=== PATIENT | male | born 2000 | race Hispanic/Latino ===

== ENCOUNTER 2022-07-23 15:48 | Emergency (ER) | payer MEDICAID, SELFPAY ==
[2022-07-23 15:49] VITALS: BP 113/83; PULSE 115; RESP 18; TEMP 36.6; O2SAT 100; BMI 24.8
--- NOTE | 2022-07-23 15:54 | EDS_ITS ---
HPI History of Present Illness Chief Complaint: Lower Extremity Injury Narrative Narrative: 21-year-old male here for right knee pain after running from the police. Patient further states he injured his right knee, twisted the knee. Denies history of surgery or other injury to the involved extremity. Patient denies active cancer, being bedridden for greater than 3 days, denies unilateral leg swelling, denies any varicose veins, denies any calf tenderness, denies any edema. Denies major surgery within 12 weeks, recent paralysis, previous DVT. PFSH PFSH Medical History no medical history Allergy/AdvReac Type Severity Reaction Status Date / Time No Known Allergies Allergy Verified 07/23/22 15:52 Social History Smoking Status: Current every day smoker tobacco type: cigarettes ROS ROS ED ROS Narrative Constitutional: Denies fever HEENT: Denies sore throat Neck: Denies neck pain Cardiovascular: Denies chest pain, syncope Respiratory: Denies shortness of breath GI: Denies nausea vomiting or abdominal pain : Denies changes in urinary habits Musculoskeletal: Endorses knee pain Neurologic: Denies numbness weakness or loss of sensation Skin denies rash EXAM Physical Exam Narrative Exam Narrative: Nursing triage notes reviewed, Vital signs reviewed Constitutional: please see mdm HENT: MMM Eyes: Pupils equal round and reactive to light, Extraocular muscles intact Neck: No stridor, no JVD, full neck ROM Lungs: Clear to auscultation, No wheezing or rales. No increased work of breathing, no conversational dyspnea, no accessory muscle use, no nasal flaring. No respiratory distress noted Heart: Regular rate and rhythm, No murmurs, No rubs and No gallops, 2+ distal pulses (radial, femoral, posterior tibial) in all extremities Abdomen: Soft, there is no tenderness, rigidity, rebound or guarding, no obvious peritoneal signs, no palpable pulsatile abdominal masses, no auscultated abdominal bruit : No CVAT Extremities: No edema, intact range of motion flexion extension of the right knee, intact quadricep tendon complex, no obvious deformity, compartments are soft, no unilateral leg swelling noted Neuro: No focal neurological deficits, cranial nerves II through XII intact, 5/5 strength in all extremities. Intact sensation to light touch in all extremities, 2+ reflexes bilateral patella dens. Normal gait. No ataxia. Skin: No rash or lesions noted Const Vital Signs: 07/23/22 15:49 Temperature 97.8 F Temperature Source Oral Pulse Rate 115 H Respiratory Rate 18 Blood Pressure 113/83 H Blood Pressure Mean 93 Pulse Ox 100 Oxygen Delivery Method Room Air MDM MDM MDM Narrative Medical decision making narrative: Chief Complaint: Knee pain External records reviewed: no recent advanced imaging of the involved extremity MDM: Patient was initially hemodynamically stable, tachycardic. Exam with neurovascular intact involved extremity. Intact quadriceps tendon complex. I considered the following differential diagnosis: Knee fracture, dislocation, tendinous disruption, contusion or sprain I obtained an x-ray of the involved extremity to rule out fracture dislocation. X-ray showed no evidence of acute fracture dislocation. Patient likely suffering from a knee contusion versus knee sprain. He is instructed on RICE therapy. Given the patient initial tachycardia reported using methamphetamine I did obtain an EKG which showed no evidence of arrhythmia, myocardial ischemia. Factors affecting care: None Social determinants of health: Methamphetamine abuse History obtained from others: Police Shared decision making: I will have a discussion with the patient and or visitors regarding risk/benefits of further testing or admission. They will be made aware of of the risk/benefits inherent in this decision they will be given the opportunity to voice understanding. Consults: Discharge Radiography Diagnostic Testing: Clinical Impression(s) from Imaging Studies Knee X-Ray 07/23/22 16:20 IMPRESSION: No visualized fracture or dislocation. Electronically Signed: Sebastián Webb DO at 16:35 EDT Reading Location ID and State: [address] [place] [address] Tel [phone], Service support , Discharge Plan Triage Chief Complaint: Lower Extremity Injury ED Provider: Eloy Sinclair Dx/Rx/DC Orders Primary Care Provider: Care Physician,No Primary Referrals: [facility] Doctor,Out of [Non-Staff] -
[2022-07-23] MEDS: Acetaminophen 325 MG Tablet PO (16:17)
--- NOTE | 2022-07-23 16:17 | NURSING ---
NO OLD EKGS
--- NOTE | 2022-07-23 16:20 | RAD_ITS ---
STUDY: X-RAY - RIGHT KNEE REASON FOR EXAM: Male, 21 years old. Injured right knee running from the police. TECHNIQUE: 2 view(s) of the knee. COMPARISON: None. FINDINGS: Normal visualized distal femur. Normal visualized proximal tibia and fibula. Normal proximal tibiofibular articulation. There is no acute fracture, dislocation or destructive osseous pathology. Normal medial femorotibial compartment. Normal lateral femorotibial compartment. Normal patellofemoral articulation. There is no demonstrated joint effusion. The soft tissue structures are unremarkable. RAD/Knee 1 or 2 Views IMPRESSION: No visualized fracture or dislocation. Electronically Signed: Sebastián Webb DO at 16:35 EDT ,
== END 2022-07-23 17:11 | disposition home or self-care (01) ==
PROVIDERS: Emergency Provider Emergency Medicine; Visit Provider Emergency Medicine
DX: M25.561 Pain in right knee (principal); F15.10 Other stimulant abuse, uncomplicated; F17.210 Nicotine dependence, cigarettes, uncomplicated
CPT/HCPCS: 73560; 93005; 99284